=== PATIENT | male | born 1970 | race Caucasian/White ===

== ENCOUNTER 2018-03-16 | Emergency (ER) | payer SELFPAY | END 2018-03-16 22:53 | disposition home or self-care (01) | DX: S20.212A Contusion of left front wall of thorax, initial encounter (principal); W55.12XA Struck by horse, initial encounter; Y93.89 Activity, other specified; Y92.89 Other specified places as the place of occurrence of the external cause; Y99.8 Other external cause status ==

== ENCOUNTER 2019-12-01 13:44 | Inpatient (IN) | payer OTHER ==
[~2019-12-01] VITALS: Ht 175 cm; Wt 117.9 kg
[2019-12-01 14:02] VITALS: BP 168/90
[2019-12-01 14:17] LABS: BASO # 0.1 10*3/uL (0.0-0.1); BASO % 0.8 % (0.0-1.0); EOS % 0.7 % (1.0-4.0); HEMATOCRIT 48.9 % (42.0-52.0); LYMPH # 1.5 10*3/uL (1.3-4.4); MEAN CELL VOLUME 89.6 fl (80.0-94.0); MEAN CORPUSCULAR HGB 30.8 pg (27.0-31.0); MEAN CORPUSCULAR HGB CONC 34.4 g/dl (33.0-37.0); MONO # 0.6 10*3/uL (0.1-1.0); MONO % 9.5 % (3.0-9.0); NEUT # 3.9 10*3/uL (2.3-7.9); NEUT % 64.7 % (47.0-73.0); PLATELET COUNT AUTOMATED 227 10*3/uL (130-400); RED BLOOD COUNT 5.46 10*6/uL (4.50-5.90)
[2019-12-01 14:29] LABS: ACT PARTIAL THROMBO TIME 27.1 SECONDS (20.0-32.1)
[2019-12-01 14:36] LABS: ALBUMIN 3.8 gm/dl (3.1-4.5); ALKALINE PHOSPHATASE 109 U/L (45-117); BUN 15 mg/dl (7-24); CHLORIDE 101 mmol/L (98-107); CREATININE 1.02 mg/dL (0.70-1.30); POTASSIUM 3.9 mmol/L (3.5-5.1); SGOT/AST 47 IU/L (3-35); SGPT/ALT 98 U/L (12-78); SODIUM 132 mmol/L (136-145); TOTAL PROTEIN 7.8 gm/dL (6.4-8.2)
[2019-12-01 14:38] LABS: TROPONIN I < 0.015 ng/ml (<0.045)
--- NOTE | 2019-12-01 17:00 | NUR ---
PATIENT ASSISTED TO THE RESTROOM.
--- NOTE | 2019-12-01 17:03 | NUR ---
PT REPORTS THAT HE IS NOT HAVING ANY PAIN AT THIS TIME. PT VSS. NO SIGNS OF ACUTE DISTRESS NOTED AT THIS TIME.
--- NOTE | 2019-12-01 17:04 | NUR ---
PATIENT ASSISTED BACK TO BED. CALL LIGHT IN REACH. RECONNECTED TO MONITOR.
[2019-12-01 18:09] VITALS: BP 132/80
--- NOTE | 2019-12-01 18:35 | NUR ---
FLOOR IS HAVING US HOLD PT DOWN HERE UNTIL SHIFT CHANGE.
--- NOTE | 2019-12-01 19:03 | NUR ---
Transfer of care from Milagro samuel.
--- NOTE | 2019-12-01 19:12 | NUR ---
In to see pt at this time.Pt is alert and orientated x3.Pt has clear lung sounds at this time.Pt denies open wounds at this time.Pt has 20 gauge with good blood return in left ac at this time.
[2019-12-01 19:17] VITALS: BP 130/80
--- NOTE | 2019-12-01 19:40 | NUR ---
A 49, admitted to [facility], under the services of JULES Lambert DO with a diagnosis of NEAR SYNCOPE, R/O ACUTE ME. Chief complaint is CHEST PAIN. Patient arrived via wheel chair from ER. Monitor applied. Initial assessment completed. Vital signs taken and recorded. JULES LAMBERT DO notified of admission to the unit. Orders received. See assessment for past medical history, medications and allergies. Patient and/or family oriented to unit. [address] visitation policy reviewed. Clothing/patient valuable form completed. BRUCE SIDDIQUI
--- NOTE | 2019-12-01 20:01 | NUR ---
PT SITTING UP IN BED AT THIS TIME. NO S/S OF DISTRESS NOTED. DENIES CP OR SOB. PT REFUSING SKIN ASSESSMENT, DENIES WOUNDS.
[2019-12-02] VITALS: BP 106/68
[2019-12-02 06:40] LABS: BASO % 0.7 % (0.0-1.0); EOS # 0.1 10*3/uL (0.0-0.4); EOS % 1.8 % (1.0-4.0); HEMATOCRIT 48.6 % (42.0-52.0); LYMPH % 33.9 % (27.0-41.0); MEAN CELL VOLUME 90.8 fl (80.0-94.0); MEAN CORPUSCULAR HGB 31.4 pg (27.0-31.0); MEAN CORPUSCULAR HGB CONC 34.6 g/dl (33.0-37.0); MEAN PLATELET VOLUME 11.6 fl (9.6-12.3); MONO # 0.6 10*3/uL (0.1-1.0); MONO % 9.3 % (3.0-9.0); NEUT # 3.2 10*3/uL (2.3-7.9); NEUT % 53.8 % (47.0-73.0); PLATELET COUNT AUTOMATED 221 10*3/uL (130-400); RED BLOOD COUNT 5.35 10*6/uL (4.50-5.90); RED CELL DISTRI WIDTH 12.2 % (0-14.5)
[2019-12-02 07:14] LABS: INTERNATIONAL NORM RATIO 1.2 (2.0-3.5)
[2019-12-02 07:16] LABS: ALBUMIN 3.4 gm/dl (3.1-4.5); BUN 16 mg/dl (7-24); CHLORIDE 103 mmol/L (98-107); CHOLESTEROL 135 mg/dL (<200); CREATININE 0.75 mg/dL (0.70-1.30); POTASSIUM 3.9 mmol/L (3.5-5.1); SGOT/AST 48 IU/L (3-35); SGPT/ALT 97 U/L (12-78); SODIUM 136 mmol/L (136-145); TRIGLYCERIDES 85 mg/dl (<150); VLDL CHOLESTEROL 17 mg/dL (6-40)
[2019-12-02 07:23] LABS: ALKALINE PHOSPHATASE 80 U/L (45-117); HDL CHOLESTEROL 42 mg/dl (40-60); LDL CHOLESTEROL 76 mg/dL (9-159)
[2019-12-02 07:36] LABS: VITAMIN D, 25-HYDROXY 24.7 ng/mL (30-100)
[2019-12-02 08:00] VITALS: BP 124/58
--- NOTE | 2019-12-02 09:00 | NUR ---
case management visits with patient, he was in process of receiving an Echo, he stated he did not have any needs when he is discharged, case management will follow
[2019-12-02 12:00] VITALS: BP 106/54
[2019-12-02] MEDS ORDERED: GLUCOPHAGE XR750 MG PO (15:55)
[2019-12-02 16:00] VITALS: BP 106/68
[2019-12-02 20:00] VITALS: BP 115/67
[2019-12-03] VITALS (8 sets, daily range): BP systolic 106–150; BP diastolic 70–93
--- NOTE | 2019-12-03 03:10 | NUR ---
NOTIFIED DR. DEL CID OF PATIENT HEART RATE DIPPED DOWN TO 29BPM AND CAME RIGHT BACK UP TO 60'S. CHECKED ON PATIENT HE SLEEPING RESP EASY AND REG. WILL CONT TO MONITOR.
--- NOTE | 2019-12-03 03:11 | NUR ---
24 HR chart check completed.
--- NOTE | 2019-12-03 08:00 | NUR ---
PATIENT ALERT ORIENTED X 3. DENIES ANY CHEST PAIN OR SHORTNESS OF BREATH.
--- NOTE | 2019-12-03 09:00 | NUR ---
case management visits with patient, he states he will return home when discharged. he would like to have scripts filled in the hospital pharmacy when discharged, no other needs at this time, case management will follow
--- NOTE | 2019-12-03 11:01 | NUR ---
PATIENT TAKEN TO OR FOR PANFILO/CARDIOVERSION.
--- NOTE | 2019-12-03 15:07 | NUR ---
PATIENT HAS BEEN BACK FROM PROCEDURE. CARDIOVERSION NOT SUCCESSFULL STILL AFIB PER MONITOR RATE IN THE 70-80'S. NEW MEDICATIONS HAVE BEEN STARTED.
--- NOTE | 2019-12-03 23:15 | NUR ---
CALLED DR. DEL CID AND NOTIFIED HER OF HR INTO 30'S NO NEW ORDERS
[2019-12-04] VITALS: BP 93/57
--- NOTE | 2019-12-04 00:10 | NUR ---
CALLED DR. DEL CID AND NOTIFIED OF PT. HR 36BPM AND BACK UP TO 56BPM AND PATIENT WAS SLEEPING ON LEFT SIDE AT THE TIME. NO NEW ORDERS.
--- NOTE | 2019-12-04 04:00 | NUR ---
24 HR chart check completed.
[2019-12-04 08:00] VITALS: BP 120/66
[2019-12-04 12:00] VITALS: BP 131/55
[2019-12-04] MEDS ORDERED: GLUCOPHAGE XR750 MG PO (14:48)
[2019-12-04] MEDS ORDERED: LOSARTAN POTASS25 M1 PO (14:48)
[2019-12-04] MEDS ORDERED: VITAMIN D350 MC2 PO (14:48)
[2019-12-04] MEDS ORDERED: XARE20MG PO (14:48)
[2019-12-04] MEDS ORDERED: METOPROLOL SUCC50 M1 PO (14:48)
--- NOTE | 2019-12-04 14:56 | NUR ---
PATIENT DISCHARGED TO HOME.
== END 2019-12-04 16:37 | disposition home or self-care (01) | DRG 313 ==
LOC: ED 13:44 → 4NE 17:49 → EDHOLD 17:49 → 4NE 18:01
PROVIDERS: Emergency Medicine; Internal Medicine; ADMIT Internal Medicine; ATTEND Internal Medicine
DX: R07.9 Chest pain, unspecified (principal); E87.1 Hypo-osmolality and hyponatremia; I48.91 Unspecified atrial fibrillation; E11.65 Type 2 diabetes mellitus with hyperglycemia; I10 Essential (primary) hypertension; E66.9 Obesity, unspecified; R74.0 Nonspecific elevation of levels of transaminase and lactic acid dehydrogenase [LDH]; Z82.49 Family history of ischemic heart disease and other diseases of the circulatory system; Z86.718 Personal history of other venous thrombosis and embolism; Z79.899 Other long term (current) drug therapy

== ENCOUNTER → 2020-01-02 | Outpatient (CLI) | payer OTHER ==
[~2020-01-02] MED LIST: GLUCOPHAGE XR750 MG PO; LOSARTAN POTASS25 M1 PO; METOPROLOL SUCC50 M1 PO; VITAMIN D350 MC2 PO; XARE20MG PO
== END | disposition home or self-care (01) ==
LOC: RESCLI 00:23
PROVIDERS: ATTEND Internal Medicine
DX: E11.65 Type 2 diabetes mellitus with hyperglycemia (principal); I48.20 Chronic atrial fibrillation, unspecified; I10 Essential (primary) hypertension; R73.9 Hyperglycemia, unspecified; M10.071 Idiopathic gout, right ankle and foot; E55.9 Vitamin D deficiency, unspecified; E66.01 Morbid (severe) obesity due to excess calories

== ENCOUNTER → 2020-03-10 | Outpatient (CLI) | payer OTHER | END | disposition home or self-care (01) | LOC: RESCLI 00:32 | PROVIDERS: ATTEND Internal Medicine Nephrology | DX: E11.65 Type 2 diabetes mellitus with hyperglycemia (principal); I48.20 Chronic atrial fibrillation, unspecified; I10 Essential (primary) hypertension; E55.9 Vitamin D deficiency, unspecified; Z79.84 Long term (current) use of oral hypoglycemic drugs ==

== ENCOUNTER → 2020-10-14 | Outpatient (CLI) | payer OTHER | END | disposition home or self-care (01) | LOC: RESCLI 00:50 | PROVIDERS: ATTEND Internal Medicine | DX: R35.0 Frequency of micturition (principal); R20.8 Other disturbances of skin sensation; E11.65 Type 2 diabetes mellitus with hyperglycemia; E55.9 Vitamin D deficiency, unspecified; I48.20 Chronic atrial fibrillation, unspecified; I10 Essential (primary) hypertension; N39.0 Urinary tract infection, site not specified; I34.0 Nonrheumatic mitral (valve) insufficiency; Z79.899 Other long term (current) drug therapy; Z79.84 Long term (current) use of oral hypoglycemic drugs ==

== ENCOUNTER → 2020-10-15 | Outpatient (CLI) | payer OTHER ==
[2020-10-15 10:21] LABS: BILIRUBIN Negative (Negative); BLOOD Negative (Negative); CLARITY Clear (Clear); COLOR Yellow (Yellow); GLUCOSE 3+ (Negative); KETONE Negative (Negative); LEUKO ESTERASE Negative (Negative); NITRITE Negative (Negative); SPECIFIC GRAVITY >= 1.030 (1.001-1.030)
[2020-10-15 10:22] LABS: BASO # 0.1 10*3/uL (0.0-0.1); BASO % 0.7 % (0.0-1.0); EOS # 0.1 10*3/uL (0.0-0.4); EOS % 1.1 % (1.0-4.0); HEMATOCRIT 53.5 % (42.0-52.0); LYMPH # 1.3 10*3/uL (1.3-4.4); LYMPH % 16.1 % (27.0-41.0); MEAN CELL VOLUME 92.1 fl (80.0-94.0); MEAN CORPUSCULAR HGB CONC 33.6 g/dl (33.0-37.0); MEAN PLATELET VOLUME 11.9 fl (9.6-12.3); MONO # 0.9 10*3/uL (0.1-1.0); MONO % 10.8 % (3.0-9.0); NEUT # 5.8 10*3/uL (2.3-7.9); NEUT % 70.7 % (47.0-73.0); PLATELET COUNT AUTOMATED 250 10*3/uL (130-400); RED BLOOD COUNT 5.81 10*6/uL (4.50-5.90); RED CELL DISTRI WIDTH 12.2 % (0-14.5); WHITE BLOOD COUNT 8.2 10*3/uL (4.8-10.8)
[2020-10-15 10:41] LABS: ALBUMIN 3.9 gm/dl (3.1-4.5); ALKALINE PHOSPHATASE 152 U/L (45-117); BUN 24 mg/dl (7-24); CHLORIDE 107 mmol/L (98-107); CHOLESTEROL 147 mg/dL (<200); LDL CHOLESTEROL 77 mg/dL (9-159); POTASSIUM 4.3 mmol/L (3.5-5.1); SGOT/AST 32 IU/L (3-35); SGPT/ALT 78 U/L (12-78); SODIUM 137 mmol/L (136-145); TOTAL PROTEIN 8.3 gm/dL (6.4-8.2); TRIGLYCERIDES 115 mg/dl (<150)
[2020-10-15 10:59] LABS: BACTERIA TRACE
== END | disposition home or self-care (01) ==
LOC: LAB 01:07
PROVIDERS: ATTEND Social Worker Clinical
DX: I48.20 Chronic atrial fibrillation, unspecified (principal); I10 Essential (primary) hypertension; E55.9 Vitamin D deficiency, unspecified; N39.0 Urinary tract infection, site not specified; E11.65 Type 2 diabetes mellitus with hyperglycemia

== ENCOUNTER → 2020-10-28 | Outpatient (CLI) | payer OTHER | END | disposition home or self-care (01) | LOC: RESCLI 00:35 | PROVIDERS: ATTEND Internal Medicine | DX: E11.65 Type 2 diabetes mellitus with hyperglycemia (principal); G47.33 Obstructive sleep apnea (adult) (pediatric); Z79.84 Long term (current) use of oral hypoglycemic drugs; Z79.899 Other long term (current) drug therapy ==

== ENCOUNTER → 2021-09-22 | Outpatient (CLI) | payer OTHER ==
[2021-09-22 17:42] LABS: BASO # 0.1 10*3/uL (0.0-0.1); BASO % 0.7 % (0.0-1.0); EOS # 0.1 10*3/uL (0.0-0.4); EOS % 1.3 % (1.0-4.0); HEMATOCRIT 50.7 % (42.0-52.0); LYMPH # 1.9 10*3/uL (1.3-4.4); MEAN CELL VOLUME 91.2 fl (80.0-94.0); MEAN CORPUSCULAR HGB 31.5 pg (27.0-31.0); MEAN CORPUSCULAR HGB CONC 34.5 g/dl (33.0-37.0); MEAN PLATELET VOLUME 11.6 fl (9.6-12.3); MONO # 0.7 10*3/uL (0.1-1.0); MONO % 9.6 % (3.0-9.0); NEUT # 4.3 10*3/uL (2.3-7.9); PLATELET COUNT AUTOMATED 234 10*3/uL (130-400); RED BLOOD COUNT 5.56 10*6/uL (4.50-5.90); WHITE BLOOD COUNT 7.1 10*3/uL (4.8-10.8)
[2021-09-22 17:44] LABS: BILIRUBIN Negative (Negative); BLOOD Negative (Negative); CLARITY Clear (Clear); COLOR Yellow (Yellow); GLUCOSE 3+ (Negative); KETONE Negative (Negative); LEUKO ESTERASE Negative (Negative); NITRITE Negative (Negative); SPECIFIC GRAVITY >= 1.030 (1.001-1.030); UROBILINOGEN 0.2 E.U./dl (0.0-1.0)
[2021-09-22 17:57] LABS: ALKALINE PHOSPHATASE 104 U/L (45-117); BUN 13 mg/dl (7-24); CHLORIDE 105 mmol/L (98-107); POTASSIUM 4.1 mmol/L (3.5-5.1); SGOT/AST 56 IU/L (3-35); SGPT/ALT 123 U/L (12-78); SODIUM 137 mmol/L (136-145); TOTAL PROTEIN 7.7 gm/dL (6.4-8.2)
[2021-09-22 19:15] LABS: BACTERIA TRACE
== END | disposition home or self-care (01) ==
LOC: RESCLI 14:48
PROVIDERS: Internal Medicine; ATTEND Family Medicine
DX: E11.65 Type 2 diabetes mellitus with hyperglycemia (principal); I10 Essential (primary) hypertension; R30.0 Dysuria; I48.20 Chronic atrial fibrillation, unspecified; Z79.899 Other long term (current) drug therapy; Z79.01 Long term (current) use of anticoagulants

== ENCOUNTER 2022-11-18 10:23 | Emergency (ER) | payer OTHER ==
[~2022-11-18] VITALS: Ht 175.2 cm
[2022-11-18 11:12] LABS: BASO % 0.5 % (0.0-1.0); EOS % 0.4 % (1.0-4.0); HEMATOCRIT 50.3 % (42.0-52.0); LYMPH # 1.6 10*3/uL (1.3-4.4); LYMPH % 20.6 % (27.0-41.0); MEAN CELL VOLUME 87.6 fl (80.0-94.0); MEAN CORPUSCULAR HGB 30.8 pg (27.0-31.0); MEAN CORPUSCULAR HGB CONC 35.2 g/dl (33.0-37.0); MEAN PLATELET VOLUME 11.3 fl (9.6-12.3); MONO # 0.6 10*3/uL (0.1-1.0); MONO % 7.6 % (3.0-9.0); NEUT # 5.3 10*3/uL (2.3-7.9); NEUT % 70.5 % (47.0-73.0); PLATELET COUNT AUTOMATED 259 10*3/uL (130-400); RED BLOOD COUNT 5.74 10*6/uL (4.50-5.90); RED CELL DISTRI WIDTH 11.9 % (0-14.5); WHITE BLOOD COUNT 7.5 10*3/uL (4.8-10.8)
[2022-11-18 11:42] LABS: ALKALINE PHOSPHATASE 110 U/L (46-116); BUN 11 mg/dl (9-23); CHLORIDE 106 mmol/L (98-107); POTASSIUM 4.2 mmol/L (3.4-5.1); SGPT/ALT 23 U/L (10-49); TOTAL PROTEIN 7.6 gm/dL (6.0-8.0)
[2022-11-18 13:07] LABS: BILIRUBIN Negative (Negative); BLOOD Negative (Negative); CLARITY Clear (Clear); COLOR Yellow (Yellow); GLUCOSE 3+ (Negative); KETONE Trace (Negative); LEUKO ESTERASE Trace (Negative); NITRITE Negative (Negative); SPECIFIC GRAVITY >= 1.030 (1.001-1.030); UROBILINOGEN 0.2 E.U./dl (0.0-1.0)
[2022-11-18 13:17] LABS: RBC 0-2 rbc/hpf (0-2)
[2022-11-18 13:18] LABS: BACTERIA 2+
== END 2022-11-18 14:11 | disposition home or self-care (01) ==
LOC: ED 10:23
PROVIDERS: Nurse Practitioner Family
DX: B37.42 Candidal balanitis (principal); M25.561 Pain in right knee; I48.91 Unspecified atrial fibrillation; E11.9 Type 2 diabetes mellitus without complications; Z98.890 Other specified postprocedural states; Z79.899 Other long term (current) drug therapy

== ENCOUNTER 2023-11-01 09:39 | Emergency (ER) | payer OTHER ==
[~2023-11-01] VITALS: Ht 175.2 cm; Wt 108.9 kg
[2023-11-01 10:57] LABS: BASO # 0.1 10*3/uL (0.0-0.1); BASO % 0.8 % (0.0-1.0); EOS # 0.1 10*3/uL (0.0-0.4); EOS % 1.1 % (1.0-4.0); HEMATOCRIT 50.3 % (42.0-52.0); LYMPH # 1.5 10*3/uL (1.3-4.4); MEAN CELL VOLUME 90.1 fl (80.0-94.0); MEAN CORPUSCULAR HGB 31.2 pg (27.0-31.0); MEAN CORPUSCULAR HGB CONC 34.6 g/dl (33.0-37.0); MEAN PLATELET VOLUME 10.7 fl (9.6-12.3); MONO # 0.5 10*3/uL (0.1-1.0); MONO % 7.6 % (3.0-9.0); NEUT # 4.3 10*3/uL (2.3-7.9); NEUT % 66.2 % (47.0-73.0); PLATELET COUNT AUTOMATED 260 10*3/uL (130-400); RED BLOOD COUNT 5.58 10*6/uL (4.50-5.90); RED CELL DISTRI WIDTH 11.9 % (0-14.5); WHITE BLOOD COUNT 6.4 10*3/uL (4.8-10.8)
[2023-11-01 11:13] LABS: ALKALINE PHOSPHATASE 118 U/L (46-116); BUN 13 mg/dl (9-23); CHLORIDE 104 mmol/L (98-107); LIPASE 38 U/L (12-53); POTASSIUM 4.3 mmol/L (3.4-5.1); SGPT/ALT 40 U/L (5-49); TOTAL PROTEIN 7.4 gm/dL (6.0-8.0)
[2023-11-01 11:26] LABS: BILIRUBIN Negative (Negative); BLOOD Negative (Negative); CLARITY Clear (Clear); COLOR Yellow (Yellow); GLUCOSE 3+ (Negative); KETONE Negative (Negative); LEUKO ESTERASE Negative (Negative); NITRITE Negative (Negative); PH 6.5 (4.5-8.0); SPECIFIC GRAVITY >= 1.030 (1.001-1.030)
[2023-11-01 11:35] LABS: WBC TNTC wbc/hpf (0-5)
[2023-11-01] MEDS ORDERED: Lidocaine Hydrochloride 15 ML UDC PO ONE (11:50)
[2023-11-01] MEDS ORDERED: MG-AL HYDROXIDE/SIMETICONE 30 ML UDC PO ONE (11:50)
[2023-11-01] MEDS ORDERED: METFORMIN HYDR500 MG PO (12:00)
[2023-11-01] MEDS ORDERED: IOHEXOL 350 MG/ML 100 ML VIAL IV ONE (12:05)
[2023-11-01] MEDS ORDERED: SODIUM CHLORIDE 0.9% 100 ML BAG IV ONE (12:05)
[2023-11-01] MEDS ORDERED: OMEPRAZOLE40 MG PO (13:48)
== END 2023-11-01 14:06 | disposition home or self-care (01) ==
LOC: ED 09:39
PROVIDERS: Emergency Medicine
DX: R10.11 Right upper quadrant pain (principal); R07.89 Other chest pain; M54.6 Pain in thoracic spine; Z79.899 Other long term (current) drug therapy; Z79.84 Long term (current) use of oral hypoglycemic drugs

== ENCOUNTER 2023-11-13 06:18 | Emergency (ER) | payer OTHER ==
[~2023-11-13] VITALS: Ht 177.8 cm; Wt 122.5 kg
[~2023-11-13 06:18] MED LIST changes: +METFORMIN HYDR500 MG PO; +OMEPRAZOLE40 MG PO
[2023-11-13 06:58] LABS: BASO % 0.6 % (0.0-1.0); EOS # 0.1 10*3/uL (0.0-0.4); EOS % 1.3 % (1.0-4.0); LYMPH # 1.7 10*3/uL (1.3-4.4); LYMPH % 24.3 % (27.0-41.0); MEAN CELL VOLUME 88.5 fl (80.0-94.0); MEAN PLATELET VOLUME 10.8 fl (9.6-12.3); MONO # 0.7 10*3/uL (0.1-1.0); MONO % 9.3 % (3.0-9.0); NEUT # 4.6 10*3/uL (2.3-7.9); NEUT % 64.2 % (47.0-73.0); PLATELET COUNT AUTOMATED 231 10*3/uL (130-400); RED BLOOD COUNT 4.97 10*6/uL (4.50-5.90); RED CELL DISTRI WIDTH 11.8 % (0-14.5); WHITE BLOOD COUNT 7.2 10*3/uL (4.8-10.8)
[2023-11-13 07:20] LABS: ALKALINE PHOSPHATASE 122 U/L (46-116); BUN 12 mg/dl (9-23); CHLORIDE 103 mmol/L (98-107); LIPASE 34 U/L (12-53); POTASSIUM 3.6 mmol/L (3.4-5.1); SGPT/ALT 22 U/L (5-49); TOTAL PROTEIN 6.6 gm/dL (6.0-8.0)
[2023-11-13] MEDS ORDERED: LIDOCAINE 4% PATCH T ONE (07:30)
[2023-11-13] MEDS ORDERED: ACETAMINOPHEN 325 MG TAB PO ONE (07:30)
[2023-11-13 07:36] LABS: BILIRUBIN Negative (Negative); BLOOD Negative (Negative); CLARITY Clear (Clear); COLOR Yellow (Yellow); GLUCOSE 2+ (Negative); KETONE Negative (Negative); LEUKO ESTERASE 2+ (Negative); NITRITE Negative (Negative); SPECIFIC GRAVITY 1.025 (1.001-1.030)
[2023-11-13 07:40] LABS: PH 8.5 (4.5-8.0)
[2023-11-13 08:03] LABS: BACTERIA 3+; WBC 31-40 wbc/hpf (0-5)
[2023-11-13] MEDS ORDERED: ASPERCREME LID1 EACH T (08:26)
[2023-11-13] MEDS ORDERED: TYLENOL EXTRA500 MG PO (08:26)
== END 2023-11-13 08:42 | disposition home or self-care (01) ==
LOC: ED 06:18
PROVIDERS: Internal Medicine
DX: K59.00 Constipation, unspecified (principal); K57.30 Diverticulosis of large intestine without perforation or abscess without bleeding; E11.65 Type 2 diabetes mellitus with hyperglycemia; Z98.890 Other specified postprocedural states; I48.91 Unspecified atrial fibrillation

== ENCOUNTER 2023-12-03 13:29 | Emergency (ER) | payer OTHER ==
[~2023-12-03] VITALS: Wt 109.3 kg
[~2023-12-03 13:29] MED LIST changes: +ASPERCREME LID1 EACH T; +TYLENOL EXTRA500 MG PO
[2023-12-03 14:36] LABS: BASO # 0.1 10*3/uL (0.0-0.1); BASO % 0.7 % (0.0-1.0); EOS # 0.1 10*3/uL (0.0-0.4); EOS % 1.3 % (1.0-4.0); HEMATOCRIT 46.8 % (42.0-52.0); LYMPH % 28.6 % (27.0-41.0); MEAN CELL VOLUME 87.5 fl (80.0-94.0); MEAN CORPUSCULAR HGB CONC 35.5 g/dl (33.0-37.0); MEAN PLATELET VOLUME 10.8 fl (9.6-12.3); MONO # 0.6 10*3/uL (0.1-1.0); MONO % 8.8 % (3.0-9.0); NEUT # 4.3 10*3/uL (2.3-7.9); NEUT % 60.5 % (47.0-73.0); PLATELET COUNT AUTOMATED 267 10*3/uL (130-400); RED BLOOD COUNT 5.35 10*6/uL (4.50-5.90); RED CELL DISTRI WIDTH 11.9 % (0-14.5); WHITE BLOOD COUNT 7.1 10*3/uL (4.8-10.8)
[2023-12-03 15:08] LABS: BUN 10 mg/dl (9-23); CHLORIDE 101 mmol/L (98-107); POTASSIUM 4.1 mmol/L (3.4-5.1)
[2023-12-03] MEDS ORDERED: MAGNESIUM CITRATE 296 ML BOT PO ONE (15:40)
[2023-12-03] MEDS ORDERED: MIRALAX POWDER17 G1 PO (15:42)
== END 2023-12-03 16:03 | disposition home or self-care (01) ==
LOC: ED 13:29
PROVIDERS: Internal Medicine
DX: K59.00 Constipation, unspecified (principal); I48.91 Unspecified atrial fibrillation; E11.9 Type 2 diabetes mellitus without complications; Z98.890 Other specified postprocedural states

== ENCOUNTER 2023-12-07 00:12 | Emergency (ER) | payer OTHER ==
[~2023-12-07] VITALS: Ht 175.2 cm; Wt 109.3 kg
[~2023-12-07 00:12] MED LIST changes: +MIRALAX POWDER17 G1 PO
[2023-12-07] MEDS ORDERED: ACETAMINOPHEN 325 MG TAB PO ONE (00:30)
[2023-12-07 00:40] LABS: BASO % 0.6 % (0.0-1.0); EOS # 0.1 10*3/uL (0.0-0.4); EOS % 1.6 % (1.0-4.0); HEMATOCRIT 46.6 % (42.0-52.0); LYMPH # 2.1 10*3/uL (1.3-4.4); LYMPH % 30.2 % (27.0-41.0); MEAN CELL VOLUME 87.9 fl (80.0-94.0); MEAN CORPUSCULAR HGB 30.8 pg (27.0-31.0); MEAN PLATELET VOLUME 11.2 fl (9.6-12.3); MONO # 0.6 10*3/uL (0.1-1.0); MONO % 9.2 % (3.0-9.0); NEUT % 58.1 % (47.0-73.0); PLATELET COUNT AUTOMATED 252 10*3/uL (130-400); RED CELL DISTRI WIDTH 11.8 % (0-14.5); WHITE BLOOD COUNT 6.9 10*3/uL (4.8-10.8)
[2023-12-07 01:00] LABS: BUN 15 mg/dl (9-23); CHLORIDE 101 mmol/L (98-107); POTASSIUM 4.3 mmol/L (3.4-5.1)
[2023-12-07] MEDS ORDERED: MAGNESIUM CITRATE 296 ML BOT PO ONE (01:20)
== END 2023-12-07 01:28 | disposition home or self-care (01) ==
LOC: ED 00:12
PROVIDERS: Internal Medicine
DX: K59.00 Constipation, unspecified (principal); E11.9 Type 2 diabetes mellitus without complications; I48.91 Unspecified atrial fibrillation; Z98.890 Other specified postprocedural states

== ENCOUNTER 2023-12-30 19:48 | Emergency (ER) | payer OTHER ==
[~2023-12-30] VITALS: Ht 175.2 cm; Wt 104.8 kg
[2023-12-30] MEDS ORDERED: Ketorolac Tromethamine 30 MG/ML VIAL IM ONE (20:45)
[2023-12-30] MEDS ORDERED: Acetaminophen/Hydrocodone 5 MG/325 MG TABLET PO ONE (20:45)
[2023-12-30] MEDS ORDERED: KETOROLAC10 MG PO (20:53)
== END 2023-12-30 21:41 | disposition home or self-care (01) ==
LOC: ED 19:48
DX: S39.012D Strain of muscle, fascia and tendon of lower back, subsequent encounter (principal); M54.6 Pain in thoracic spine; R10.9 Unspecified abdominal pain; E11.9 Type 2 diabetes mellitus without complications; Z79.899 Other long term (current) drug therapy; Z79.84 Long term (current) use of oral hypoglycemic drugs; X50.9XXD Other and unspecified overexertion or strenuous movements or postures, subsequent encounter

== ENCOUNTER 2024-01-01 06:29 | Emergency (ER) | payer OTHER ==
[~2024-01-01] VITALS: Ht 177.8 cm; Wt 113.4 kg
[~2024-01-01 06:29] MED LIST changes: +KETOROLAC10 MG PO
[2024-01-01 06:56] LABS: BASO % 0.4 % (0.0-1.0); EOS # 0.1 10*3/uL (0.0-0.4); EOS % 1.1 % (1.0-4.0); HEMATOCRIT 49.9 % (42.0-52.0); LYMPH # 1.8 10*3/uL (1.3-4.4); LYMPH % 23.2 % (27.0-41.0); MEAN CELL VOLUME 87.4 fl (80.0-94.0); MEAN CORPUSCULAR HGB 30.5 pg (27.0-31.0); MEAN CORPUSCULAR HGB CONC 34.9 g/dl (33.0-37.0); MEAN PLATELET VOLUME 10.9 fl (9.6-12.3); MONO # 0.7 10*3/uL (0.1-1.0); MONO % 8.5 % (3.0-9.0); NEUT # 5.3 10*3/uL (2.3-7.9); NEUT % 66.5 % (47.0-73.0); PLATELET COUNT AUTOMATED 260 10*3/uL (130-400); RED BLOOD COUNT 5.71 10*6/uL (4.50-5.90); RED CELL DISTRI WIDTH 11.7 % (0-14.5); WHITE BLOOD COUNT 7.9 10*3/uL (4.8-10.8)
[2024-01-01 07:17] LABS: ALKALINE PHOSPHATASE 117 U/L (46-116); BUN 19 mg/dl (9-23); CHLORIDE 101 mmol/L (98-107); POTASSIUM 4.3 mmol/L (3.4-5.1); SGPT/ALT 28 U/L (5-49); TOTAL PROTEIN 7.3 gm/dL (6.0-8.0)
== END 2024-01-01 09:49 | disposition home or self-care (01) ==
LOC: ED 06:29
PROVIDERS: Internal Medicine
DX: M94.0 Chondrocostal junction syndrome [Tietze] (principal); R10.10 Upper abdominal pain, unspecified; R11.2 Nausea with vomiting, unspecified; R61 Generalized hyperhidrosis; E11.9 Type 2 diabetes mellitus without complications; I48.91 Unspecified atrial fibrillation; Z98.890 Other specified postprocedural states

== ENCOUNTER 2024-02-02 07:26 | Emergency (ER) | payer OTHER ==
[~2024-02-02] VITALS: Ht 175.2 cm; Wt 106.1 kg
[2024-02-02] MEDS ORDERED: SODIUM CHLORIDE 0.9% 1,000 ML IV ONE (07:55)
[2024-02-02] MEDS ORDERED: Ondansetron Hydrochloride 4 MG/2 ML VIAL IV ONE (07:55)
[2024-02-02] MEDS ORDERED: Ketorolac Tromethamine 15 MG/ML VIAL IV ONE (07:55)
[2024-02-02] MEDS ORDERED: MORPHINE Sulfate 2 MG/ML SYR IV ONE (07:55)
[2024-02-02] MEDS ORDERED: IOHEXOL 300 MG/ML 100 ML VIAL IV ONE (08:00)
[2024-02-02 08:09] LABS: BASO % 0.6 % (0.0-1.0); EOS # 0.1 10*3/uL (0.0-0.4); EOS % 1.2 % (1.0-4.0); HEMATOCRIT 49.8 % (42.0-52.0); MEAN CELL VOLUME 87.8 fl (80.0-94.0); MEAN CORPUSCULAR HGB 30.5 pg (27.0-31.0); MEAN CORPUSCULAR HGB CONC 34.7 g/dl (33.0-37.0); MEAN PLATELET VOLUME 10.7 fl (9.6-12.3); MONO # 0.6 10*3/uL (0.1-1.0); MONO % 9.3 % (3.0-9.0); NEUT # 3.9 10*3/uL (2.3-7.9); NEUT % 57.8 % (47.0-73.0); PLATELET COUNT AUTOMATED 256 10*3/uL (130-400); RED BLOOD COUNT 5.67 10*6/uL (4.50-5.90); RED CELL DISTRI WIDTH 11.9 % (0-14.5); WHITE BLOOD COUNT 6.8 10*3/uL (4.8-10.8)
[2024-02-02 08:25] LABS: BUN 14 mg/dl (9-23); CHLORIDE 104 mmol/L (98-107); LIPASE 37 U/L (12-53); POTASSIUM 4.1 mmol/L (3.4-5.1)
[2024-02-02 09:12] LABS: BILIRUBIN Negative (Negative); BLOOD Negative (Negative); CLARITY Clear (Clear); COLOR Dark Yellow (Yellow); GLUCOSE 1+ (Negative); KETONE Trace (Negative); LEUKO ESTERASE Negative (Negative); NITRITE Negative (Negative); PH 6.5 (4.5-8.0); SPECIFIC GRAVITY >= 1.030 (1.001-1.030)
[2024-02-02 10:02] LABS: MUCOUS 1+
[2024-02-02 10:03] LABS: BACTERIA 1+; WBC 0-2 wbc/hpf (0-5)
[2024-02-02 10:04] LABS: RBC 0-2 rbc/hpf (0-2)
[2024-02-02] MEDS ORDERED: Ondansetron4 MG PO (11:09)
[2024-02-02] MEDS ORDERED: PEPCID20 MG PO (11:09)
== END 2024-02-02 11:16 | disposition home or self-care (01) ==
LOC: ED 07:26
PROVIDERS: Emergency Medicine
DX: K29.70 Gastritis, unspecified, without bleeding (principal); R11.2 Nausea with vomiting, unspecified; E11.9 Type 2 diabetes mellitus without complications; I10 Essential (primary) hypertension; E78.5 Hyperlipidemia, unspecified; Z79.84 Long term (current) use of oral hypoglycemic drugs; Z85.47 Personal history of malignant neoplasm of testis

== ENCOUNTER 2024-02-06 06:59 | Emergency (ER) | payer OTHER ==
[~2024-02-06] VITALS: Ht 175.2 cm; Wt 106.1 kg
[~2024-02-06 06:59] MED LIST changes: +Ondansetron4 MG PO; +PEPCID20 MG PO
[2024-02-06] MEDS ORDERED: SODIUM CHLORIDE 0.9% 500 ML IV ONE (07:30)
[2024-02-06] MEDS ORDERED: Metoclopramide Hydrochloride 10 MG/2 ML VIAL IV ONE (07:30)
[2024-02-06] MEDS ORDERED: FAMOTIDINE 50 ML IV ONE (07:30)
[2024-02-06] MEDS ORDERED: diphenhydrAMINE hydrochloride 50 MG/ML VIAL IV ONE (07:30)
[2024-02-06] MEDS ORDERED: MORPHINE Sulfate 2 MG/ML SYR IV ONE (07:30)
[2024-02-06] MEDS ORDERED: SODIUM CHLORIDE 0.9% 100 ML BAG IV ONE (07:45)
[2024-02-06] MEDS ORDERED: IOHEXOL 350 MG/ML 100 ML VIAL IV ONE ×2 (07:45→08:11)
[2024-02-06 07:57] LABS: BASO % 0.5 % (0.0-1.0); EOS # 0.1 10*3/uL (0.0-0.4); EOS % 1.4 % (1.0-4.0); HEMATOCRIT 46.9 % (42.0-52.0); MEAN CELL VOLUME 87.7 fl (80.0-94.0); MEAN CORPUSCULAR HGB 30.7 pg (27.0-31.0); MEAN PLATELET VOLUME 10.8 fl (9.6-12.3); MONO # 0.6 10*3/uL (0.1-1.0); MONO % 7.8 % (3.0-9.0); NEUT # 5.1 10*3/uL (2.3-7.9); NEUT % 65.9 % (47.0-73.0); PLATELET COUNT AUTOMATED 250 10*3/uL (130-400); RED BLOOD COUNT 5.35 10*6/uL (4.50-5.90); RED CELL DISTRI WIDTH 11.9 % (0-14.5); WHITE BLOOD COUNT 7.7 10*3/uL (4.8-10.8)
[2024-02-06 08:07] LABS: ACT PARTIAL THROMBO TIME 25.9 SECONDS (20.0-32.1)
[2024-02-06] MEDS ORDERED: SODIUM CHLORIDE 0.9% 100 ML IV ONE (08:11)
[2024-02-06 08:19] LABS: CPK 47 U/L (34-171)
[2024-02-06 08:19] LABS: ALKALINE PHOSPHATASE 101 U/L (46-116); BUN 14 mg/dl (9-23); CHLORIDE 104 mmol/L (98-107); LDH 161 U/L (120-246); LIPASE 34 U/L (12-53); SGPT/ALT 21 U/L (5-49); TOTAL PROTEIN 6.7 gm/dL (6.0-8.0)
[2024-02-06 09:20] LABS: ETHYL ALCOHOL < 3.0 mg/dl (<3)
[2024-02-06 10:05] LABS: BILIRUBIN Negative (Negative); BLOOD Negative (Negative); CLARITY Clear (Clear); COLOR Yellow (Yellow); GLUCOSE 2+ (Negative); KETONE Negative (Negative); LEUKO ESTERASE Negative (Negative); NITRITE Negative (Negative); SPECIFIC GRAVITY >= 1.030 (1.001-1.030); UROBILINOGEN 0.2 E.U./dl (0.0-1.0)
[2024-02-06 10:12] LABS: URINE AMPHETAMINES Negative (1000ng/ml); URINE BARBITURATES Negative (200ng/ml); URINE BENZODIAZEPINES Negative (200ng/ml); URINE CANNABINOIDS (THC) Negative (50ng/ml); URINE COCAINE Negative (300ng/ml); URINE METHADONE Negative (300ng/ml); URINE OPIATES Positive (300ng/ml); URINE PHENCYCLIDINE Negative (25ng/ml)
[2024-02-06 10:20] LABS: EPITHELIAL CELLS 0-2
== END 2024-02-06 11:08 | disposition home or self-care (01) ==
LOC: ED 06:59
PROVIDERS: Emergency Medicine
DX: R07.89 Other chest pain (principal); Z20.822 Contact with and (suspected) exposure to COVID-19; R10.9 Unspecified abdominal pain; M54.50 Low back pain, unspecified; E11.9 Type 2 diabetes mellitus without complications; I48.91 Unspecified atrial fibrillation; Z79.899 Other long term (current) drug therapy; Z98.890 Other specified postprocedural states

== ENCOUNTER 2024-03-15 09:21 | Emergency (ER) | payer OTHER ==
[~2024-03-15] VITALS: Ht 175.2 cm; Wt 99.8 kg
[2024-03-15] MEDS ORDERED: SODIUM CHLORIDE 0.9% 1,000 ML IV ONE (09:50)
[2024-03-15] MEDS ORDERED: Metoprolol Tartrate 5 MG/5 ML VIAL IV ONE (10:35)
[2024-03-15 10:39] LABS: BASO # 0.1 10*3/uL (0.0-0.1); BASO % 0.7 % (0.0-1.0); EOS # 0.1 10*3/uL (0.0-0.4); HEMATOCRIT 49.4 % (42.0-52.0); MEAN CELL VOLUME 85.9 fl (80.0-94.0); MEAN CORPUSCULAR HGB 30.3 pg (27.0-31.0); MEAN CORPUSCULAR HGB CONC 35.2 g/dl (33.0-37.0); MEAN PLATELET VOLUME 11.2 fl (9.6-12.3); MONO # 0.7 10*3/uL (0.1-1.0); MONO % 8.8 % (3.0-9.0); NEUT # 5.4 10*3/uL (2.3-7.9); NEUT % 65.5 % (47.0-73.0); PLATELET COUNT AUTOMATED 246 10*3/uL (130-400); RED BLOOD COUNT 5.75 10*6/uL (4.50-5.90); RED CELL DISTRI WIDTH 12.3 % (0-14.5); WHITE BLOOD COUNT 8.2 10*3/uL (4.8-10.8)
[2024-03-15 10:49] LABS: VENOUS BLOOD GAS O2 SAT 86.8 % (60.0-85.0)
[2024-03-15 11:53] LABS: BUN 17 mg/dl (9-23); CHLORIDE 99 mmol/L (98-107); LIPASE 35 U/L (12-53); POTASSIUM 4.2 mmol/L (3.4-5.1)
[2024-03-15] MEDS ORDERED: INSULIN REGULAR, HUMAN 1 UNIT/0.01 ML IV ONE (12:10)
[2024-03-15] MEDS ORDERED: MAGNESIUM CITRATE 296 ML BOT PO ONE (12:10)
[2024-03-15] MEDS ORDERED: FAMOTIDINE 50 ML IV ONE (12:15)
== END 2024-03-15 14:00 | disposition home or self-care (01) ==
LOC: ED 09:21
PROVIDERS: Emergency Medicine
DX: R10.13 Epigastric pain (principal); E11.65 Type 2 diabetes mellitus with hyperglycemia; Z86.718 Personal history of other venous thrombosis and embolism; I10 Essential (primary) hypertension; E78.5 Hyperlipidemia, unspecified; I48.91 Unspecified atrial fibrillation; Z98.890 Other specified postprocedural states

== ENCOUNTER 2024-04-04 06:53 | Inpatient (IN) | payer SELFPAY ==
[~2024-04-04] VITALS: Ht 175.2 cm; Wt 100.5 kg
[2024-04-04 06:59] VITALS: BP 148/90
[2024-04-04] MEDS ORDERED: SODIUM CHLORIDE 0.9% 1,000 ML IV ONE (07:15)
[2024-04-04] MEDS ORDERED: MORPHINE Sulfate 2 MG/ML SYR IV ONE (07:15)
[2024-04-04] MEDS ORDERED: Ondansetron Hydrochloride 4 MG/2 ML VIAL IV ONE (07:15)
[2024-04-04] MEDS ORDERED: FAMOTIDINE 50 ML IV ONE (07:25)
[2024-04-04 07:28] LABS: BASO % 0.4 % (0.0-1.0); EOS # 0.1 10*3/uL (0.0-0.4); EOS % 0.7 % (1.0-4.0); HEMATOCRIT 48.1 % (42.0-52.0); MEAN CELL VOLUME 86.5 fl (80.0-94.0); MEAN CORPUSCULAR HGB 30.6 pg (27.0-31.0); MEAN CORPUSCULAR HGB CONC 35.3 g/dl (33.0-37.0); MEAN PLATELET VOLUME 10.6 fl (9.6-12.3); MONO # 0.7 10*3/uL (0.1-1.0); MONO % 9.7 % (3.0-9.0); NEUT # 3.9 10*3/uL (2.3-7.9); NEUT % 57.8 % (47.0-73.0); PLATELET COUNT AUTOMATED 242 10*3/uL (130-400); RED BLOOD COUNT 5.56 10*6/uL (4.50-5.90); RED CELL DISTRI WIDTH 11.9 % (0-14.5); WHITE BLOOD COUNT 6.8 10*3/uL (4.8-10.8)
[2024-04-04 07:50] LABS: BUN 12 mg/dl (9-23); CHLORIDE 102 mmol/L (98-107); LIPASE 38 U/L (12-53); POTASSIUM 4.1 mmol/L (3.4-5.1)
[2024-04-04] MEDS ORDERED: TRAMADOL HCL50 MG PO (08:14)
[2024-04-04] MEDS ORDERED: Magnesium Hydroxide 30 ML UDC PO PRN (09:00)
[2024-04-04] MEDS ORDERED: BISACODYL 10 MG SUPP R PRN (09:00)
[2024-04-04] MEDS ORDERED: Ondansetron Hydrochloride 4 MG/2 ML VIAL IV PRN (09:00)
[2024-04-04] MEDS ORDERED: BISACODYL 5 MG TAB PO PRN (09:00)
[2024-04-04] MEDS ORDERED: TOPROL XL25 MG PO (09:40)
[2024-04-04] MEDS ORDERED: JANUVIA100 MG PO (09:40)
[2024-04-04 12:37] VITALS: BP 133/82
[2024-04-04] MEDS ORDERED: ACETAMINOPHEN 325 MG TAB PO PRN (13:05)
[2024-04-04] MEDS ORDERED: BARIUM SULFATE 2% 450 ML BOT PO SCH (14:35)
[2024-04-04] MEDS ORDERED: Perflutren Protein Type A Mi 2 ML VIAL IV ONE (14:43)
[2024-04-04] MEDS ORDERED: DEXTROSE 10 % IN WATER 250 ML IV PRN (15:15)
[2024-04-04] MEDS ORDERED: IOHEXOL 300 MG/ML 100 ML VIAL IV ONE (16:00)
[2024-04-04] MEDS ORDERED: INSULIN LISPRO 1 UNIT/0.01 ML SQ SCH (16:30)
[2024-04-04 17:15] VITALS: BP 145/109
[2024-04-04 17:46] VITALS: BP 145/100
[2024-04-04] MEDS ORDERED: RIVAROXABAN 20 MG TAB PO SCH (18:00)
[2024-04-04 20:00] VITALS: BP 125/88
[2024-04-05] VITALS: BP 105/78
[2024-04-05 05:33] LABS: ALKALINE PHOSPHATASE 71 U/L (46-116); BUN 10 mg/dl (9-23); CHLORIDE 101 mmol/L (98-107); CHOLESTEROL 118 mg/dL (<200); FREE T4 1.57 ng/dl (0.89-1.76); LDL CHOLESTEROL 64 mg/dL (9-159); POTASSIUM 3.6 mmol/L (3.4-5.1); SGPT/ALT 23 U/L (5-49); TOTAL PROTEIN 6.3 gm/dL (6.0-8.0); TRIGLYCERIDES 76 mg/dl (<150)
[2024-04-05] MEDS ORDERED: OMEPRAZOLE 20 MG CAP PO SCH (06:00)
[2024-04-05 06:13] LABS: BASO % 0.5 % (0.0-1.0); EOS # 0.1 10*3/uL (0.0-0.4); EOS % 1.2 % (1.0-4.0); HEMATOCRIT 46.8 % (42.0-52.0); MEAN CELL VOLUME 86.7 fl (80.0-94.0); MEAN CORPUSCULAR HGB 30.4 pg (27.0-31.0); MEAN PLATELET VOLUME 11.3 fl (9.6-12.3); MONO # 0.7 10*3/uL (0.1-1.0); NEUT # 4.4 10*3/uL (2.3-7.9); NEUT % 58.8 % (47.0-73.0); PLATELET COUNT AUTOMATED 218 10*3/uL (130-400); WHITE BLOOD COUNT 7.5 10*3/uL (4.8-10.8)
[2024-04-05 06:39] LABS: ACT PARTIAL THROMBO TIME 34.5 SECONDS (20.0-32.1)
[2024-04-05 08:00] VITALS: BP 117/83
[2024-04-05 12:00] VITALS: BP 127/90
[2024-04-05] MEDS ORDERED: Metoprolol Tartrate 25 MG TAB PO SCH (13:30)
[2024-04-05 14:01] LABS: VITAMIN D, 25-HYDROXY 29.2 ng/mL (30-100)
[2024-04-05 16:00] VITALS: BP 91/59
[2024-04-05 20:00] VITALS: BP 108/79
[2024-04-06] VITALS: BP 114/87
[2024-04-06] MEDS ORDERED: Melatonin 5 MG TABLET PO PRN (00:10)
[2024-04-06] MEDS ORDERED: MORPHINE Sulfate 2 MG/ML SYR IV PRN (00:10)
[2024-04-06 07:31] LABS: BASO % 0.6 % (0.0-1.0); EOS # 0.1 10*3/uL (0.0-0.4); EOS % 1.5 % (1.0-4.0); HEMATOCRIT 46.2 % (42.0-52.0); MEAN CELL VOLUME 87.5 fl (80.0-94.0); MEAN CORPUSCULAR HGB 30.7 pg (27.0-31.0); MEAN CORPUSCULAR HGB CONC 35.1 g/dl (33.0-37.0); MEAN PLATELET VOLUME 10.8 fl (9.6-12.3); MONO # 0.7 10*3/uL (0.1-1.0); MONO % 10.8 % (3.0-9.0); NEUT # 3.2 10*3/uL (2.3-7.9); NEUT % 49.2 % (47.0-73.0); PLATELET COUNT AUTOMATED 224 10*3/uL (130-400); RED BLOOD COUNT 5.28 10*6/uL (4.50-5.90); WHITE BLOOD COUNT 6.6 10*3/uL (4.8-10.8)
[2024-04-06 07:49] LABS: BUN 12 mg/dl (9-23); CHLORIDE 101 mmol/L (98-107); POTASSIUM 4.1 mmol/L (3.4-5.1)
[2024-04-06 08:00] VITALS: BP 132/93
[2024-04-06] MEDS ORDERED: LACTULOSE 20 GM/30 ML UDC PO ONE (10:25)
[2024-04-06 12:00] VITALS: BP 134/82
[2024-04-06] MEDS ORDERED: OMEPRAZOLE MAGN20 MG PO (13:02)
== END 2024-04-06 14:33 | disposition home or self-care (01) | DRG 310 ==
LOC: ED 06:53 → EDHOLD 08:32 → 4E 14:43
PROVIDERS: Emergency Medicine; ADMIT Internal Medicine; ATTEND Internal Medicine
DX: I48.91 Unspecified atrial fibrillation (principal); R10.9 Unspecified abdominal pain; E11.65 Type 2 diabetes mellitus with hyperglycemia; E66.9 Obesity, unspecified; K59.00 Constipation, unspecified; I10 Essential (primary) hypertension; K57.30 Diverticulosis of large intestine without perforation or abscess without bleeding; I47.20 Ventricular tachycardia, unspecified; Z79.899 Other long term (current) drug therapy; Z85.47 Personal history of malignant neoplasm of testis; Z86.718 Personal history of other venous thrombosis and embolism; Z68.32 Body mass index [BMI] 32.0-32.9, adult

== ENCOUNTER 2024-05-04 19:34 | Emergency (ER) | payer SELFPAY ==
[~2024-05-04] VITALS: Ht 177.8 cm; Wt 95.7 kg
[~2024-05-04 19:34] MED LIST changes: +JANUVIA100 MG PO; +OMEPRAZOLE MAGN20 MG PO; +TOPROL XL25 MG PO; +TRAMADOL HCL50 MG PO
[2024-05-04 20:14] LABS: BASO # 0.1 10*3/uL (0.0-0.1); BASO % 0.7 % (0.0-1.0); EOS # 0.1 10*3/uL (0.0-0.4); HEMATOCRIT 47.8 % (42.0-52.0); MEAN CELL VOLUME 88.5 fl (80.0-94.0); MEAN CORPUSCULAR HGB 30.2 pg (27.0-31.0); MEAN CORPUSCULAR HGB CONC 34.1 g/dl (33.0-37.0); MEAN PLATELET VOLUME 10.6 fl (9.6-12.3); MONO # 0.6 10*3/uL (0.1-1.0); NEUT # 4.4 10*3/uL (2.3-7.9); NEUT % 63.5 % (47.0-73.0); PLATELET COUNT AUTOMATED 267 10*3/uL (130-400); RED CELL DISTRI WIDTH 12.3 % (0-14.5)
[2024-05-04 20:29] LABS: ACT PARTIAL THROMBO TIME 25.3 SECONDS (20.0-32.1)
[2024-05-04 20:35] LABS: ALKALINE PHOSPHATASE 85 U/L (46-116); BUN 15 mg/dl (9-23); CHLORIDE 104 mmol/L (98-107); POTASSIUM 4.3 mmol/L (3.4-5.1); SGPT/ALT 22 U/L (5-49); TOTAL PROTEIN 6.7 gm/dL (6.0-8.0)
[2024-05-04] MEDS ORDERED: Dicyclomine Hydrochloride 20 MG/10 ML OSYR PO STA (22:45)
[2024-05-04] MEDS ORDERED: Lidocaine Hydrochloride 15 ML UDC PO STA (22:45)
[2024-05-04] MEDS ORDERED: MG-AL HYDROXIDE/SIMETICONE 30 ML UDC PO STA (22:45)
[2024-05-04] MEDS ORDERED: ACID REDUCER10 MG PO (23:41)
== END 2024-05-04 23:54 | disposition home or self-care (01) ==
LOC: ED 19:34
PROVIDERS: Internal Medicine
DX: K21.9 Gastro-esophageal reflux disease without esophagitis (principal); E11.9 Type 2 diabetes mellitus without complications; I48.91 Unspecified atrial fibrillation; Z79.899 Other long term (current) drug therapy; Z90.89 Acquired absence of other organs

== ENCOUNTER → 2024-05-06 | Outpatient (CLI) | payer SELFPAY ==
[~2024-05-06] MED LIST changes: +ACID REDUCER10 MG PO
== END | disposition home or self-care (01) ==
LOC: RESCLI 15:08
PROVIDERS: ATTEND Student in an Organized Health Care Education/Training Program
DX: R10.13 Epigastric pain (principal); Z79.899 Other long term (current) drug therapy; Z98.890 Other specified postprocedural states

== ENCOUNTER 2024-05-10 20:09 | Emergency (ER) | payer SELFPAY ==
[~2024-05-10] VITALS: Ht 175.2 cm; Wt 104.8 kg
[2024-05-10] MEDS ORDERED: Lidocaine Hydrochloride 15 ML UDC PO STA (21:29)
[2024-05-10] MEDS ORDERED: Dicyclomine Hydrochloride 20 MG/10 ML OSYR PO STA (21:29)
[2024-05-10] MEDS ORDERED: MG-AL HYDROXIDE/SIMETICONE 30 ML UDC PO STA (21:29)
[2024-05-10 21:53] LABS: BASO # 0.1 10*3/uL (0.0-0.1); BASO % 0.8 % (0.0-1.0); EOS # 0.1 10*3/uL (0.0-0.4); EOS % 1.1 % (1.0-4.0); HEMATOCRIT 53.8 % (42.0-52.0); MEAN CELL VOLUME 88.5 fl (80.0-94.0); MEAN CORPUSCULAR HGB 30.4 pg (27.0-31.0); MEAN CORPUSCULAR HGB CONC 34.4 g/dl (33.0-37.0); MEAN PLATELET VOLUME 10.4 fl (9.6-12.3); MONO # 0.8 10*3/uL (0.1-1.0); MONO % 10.7 % (3.0-9.0); NEUT # 4.1 10*3/uL (2.3-7.9); NEUT % 55.2 % (47.0-73.0); PLATELET COUNT AUTOMATED 294 10*3/uL (130-400); RED BLOOD COUNT 6.08 10*6/uL (4.50-5.90); RED CELL DISTRI WIDTH 12.2 % (0-14.5); WHITE BLOOD COUNT 7.4 10*3/uL (4.8-10.8)
[2024-05-10 22:21] LABS: ALKALINE PHOSPHATASE 84 U/L (46-116); BUN 13 mg/dl (9-23); CHLORIDE 100 mmol/L (98-107); LIPASE 32 U/L (12-53); POTASSIUM 4.4 mmol/L (3.4-5.1); SGPT/ALT 27 U/L (5-49); TOTAL PROTEIN 7.8 gm/dL (6.0-8.0)
[2024-05-10] MEDS ORDERED: MAGNESIUM CITRATE 296 ML BOT PO ONE (22:35)
== END 2024-05-10 22:47 | disposition home or self-care (01) ==
LOC: ED 20:09
PROVIDERS: Internal Medicine
DX: K59.00 Constipation, unspecified (principal); E11.9 Type 2 diabetes mellitus without complications; Z79.899 Other long term (current) drug therapy; Z90.89 Acquired absence of other organs

== ENCOUNTER 2024-05-16 08:50 | Emergency (ER) | payer SELFPAY ==
[~2024-05-16] VITALS: Ht 175.2 cm; Wt 103.0 kg
[2024-05-16] MEDS ORDERED: MORPHINE Sulfate 2 MG/ML SYR IV ONE (09:05)
[2024-05-16] MEDS ORDERED: Metoclopramide Hydrochloride 10 MG/2 ML VIAL IV ONE (09:05)
[2024-05-16] MEDS ORDERED: SODIUM CHLORIDE 0.9% 1,000 ML IV ONE (09:05)
[2024-05-16] MEDS ORDERED: diphenhydrAMINE hydrochloride 50 MG/ML VIAL IV ONE (09:05)
[2024-05-16 09:34] LABS: BASO % 0.6 % (0.0-1.0); EOS # 0.1 10*3/uL (0.0-0.4); EOS % 1.3 % (1.0-4.0); HEMATOCRIT 47.1 % (42.0-52.0); MEAN CORPUSCULAR HGB 30.1 pg (27.0-31.0); MEAN CORPUSCULAR HGB CONC 34.2 g/dl (33.0-37.0); MEAN PLATELET VOLUME 10.9 fl (9.6-12.3); MONO # 0.7 10*3/uL (0.1-1.0); MONO % 9.7 % (3.0-9.0); NEUT # 4.4 10*3/uL (2.3-7.9); PLATELET COUNT AUTOMATED 258 10*3/uL (130-400); RED BLOOD COUNT 5.35 10*6/uL (4.50-5.90); RED CELL DISTRI WIDTH 12.1 % (0-14.5); WHITE BLOOD COUNT 6.9 10*3/uL (4.8-10.8)
[2024-05-16 09:49] LABS: BUN 11 mg/dl (9-23); CHLORIDE 104 mmol/L (98-107); LIPASE 32 U/L (12-53); POTASSIUM 4.2 mmol/L (3.4-5.1)
== END 2024-05-16 10:24 | disposition home or self-care (01) ==
LOC: ED 08:50
PROVIDERS: Emergency Medicine
DX: R10.84 Generalized abdominal pain (principal); R11.2 Nausea with vomiting, unspecified; E11.9 Type 2 diabetes mellitus without complications; I10 Essential (primary) hypertension; E78.5 Hyperlipidemia, unspecified; Z79.899 Other long term (current) drug therapy; Z79.84 Long term (current) use of oral hypoglycemic drugs

== ENCOUNTER 2024-06-02 12:06 | Emergency (ER) | payer SELFPAY ==
[~2024-06-02] VITALS: Ht 175.3 cm; Wt 104.3 kg
[2024-06-02] MEDS ORDERED: Ondansetron Hydrochloride 4 MG/2 ML VIAL IV ONE (12:25)
[2024-06-02] MEDS ORDERED: MORPHINE Sulfate 2 MG/ML SYR IV ONE (12:25)
[2024-06-02] MEDS ORDERED: SODIUM CHLORIDE 0.9% 1,000 ML IV ONE (12:25)
[2024-06-02 12:39] LABS: BASO % 0.6 % (0.0-1.0); EOS # 0.1 10*3/uL (0.0-0.4); EOS % 0.8 % (1.0-4.0); HEMATOCRIT 49.5 % (42.0-52.0); MEAN CELL VOLUME 87.6 fl (80.0-94.0); MEAN CORPUSCULAR HGB 30.1 pg (27.0-31.0); MEAN CORPUSCULAR HGB CONC 34.3 g/dl (33.0-37.0); MEAN PLATELET VOLUME 10.6 fl (9.6-12.3); MONO # 0.6 10*3/uL (0.1-1.0); MONO % 8.9 % (3.0-9.0); NEUT # 4.4 10*3/uL (2.3-7.9); NEUT % 61.6 % (47.0-73.0); PLATELET COUNT AUTOMATED 293 10*3/uL (130-400); RED BLOOD COUNT 5.65 10*6/uL (4.50-5.90); RED CELL DISTRI WIDTH 12.3 % (0-14.5); WHITE BLOOD COUNT 7.1 10*3/uL (4.8-10.8)
[2024-06-02 12:59] LABS: BUN 13 mg/dl (9-23); CHLORIDE 103 mmol/L (98-107); LIPASE 41 U/L (12-53)
[2024-06-02 13:02] LABS: POTASSIUM 4.3 mmol/L (3.4-5.1)
== END 2024-06-02 13:25 | disposition home or self-care (01) ==
LOC: ED 12:06
PROVIDERS: Emergency Medicine
DX: R10.84 Generalized abdominal pain (principal); I48.91 Unspecified atrial fibrillation; E11.9 Type 2 diabetes mellitus without complications; I10 Essential (primary) hypertension; E78.5 Hyperlipidemia, unspecified; Z79.899 Other long term (current) drug therapy

== ENCOUNTER 2024-06-07 04:37 | Emergency (ER) | payer SELFPAY ==
[~2024-06-07] VITALS: Ht 175.2 cm; Wt 101.2 kg
[2024-06-07] MEDS ORDERED: Metoclopramide Hydrochloride 10 MG/2 ML VIAL IV ONE (05:10)
[2024-06-07] MEDS ORDERED: Pantoprazole Sodium 40 MG VIAL IV ONE (05:10)
[2024-06-07 05:53] LABS: BUN 12 mg/dl (9-23); CHLORIDE 106 mmol/L (98-107); LIPASE 37 U/L (12-53)
[2024-06-07 06:16] LABS: BASO # 0.1 10*3/uL (0.0-0.1); BASO % 0.8 % (0.0-1.0); EOS # 0.1 10*3/uL (0.0-0.4); EOS % 1.5 % (1.0-4.0); HEMATOCRIT 48.7 % (42.0-52.0); MEAN CELL VOLUME 87.9 fl (80.0-94.0); MEAN CORPUSCULAR HGB 30.3 pg (27.0-31.0); MEAN CORPUSCULAR HGB CONC 34.5 g/dl (33.0-37.0); MEAN PLATELET VOLUME 11.1 fl (9.6-12.3); MONO # 0.6 10*3/uL (0.1-1.0); MONO % 9.9 % (3.0-9.0); NEUT # 3.3 10*3/uL (2.3-7.9); NEUT % 53.8 % (47.0-73.0); PLATELET COUNT AUTOMATED 294 10*3/uL (130-400); RED BLOOD COUNT 5.54 10*6/uL (4.50-5.90); RED CELL DISTRI WIDTH 12.3 % (0-14.5); WHITE BLOOD COUNT 6.1 10*3/uL (4.8-10.8)
[2024-06-07] MEDS ORDERED: Dicyclomine Hydrochloride 20 MG/10 ML OSYR PO ONE (06:30)
[2024-06-07] MEDS ORDERED: MG-AL HYDROXIDE/SIMETICONE 30 ML UDC PO ONE (06:30)
[2024-06-07] MEDS ORDERED: Lidocaine Hydrochloride 15 ML UDC PO ONE (06:30)
[2024-06-07] MEDS ORDERED: PANTOPRAZOLE SO20 MG PO (07:46)
== END 2024-06-07 08:08 | disposition home or self-care (01) ==
LOC: ED 04:37
PROVIDERS: Emergency Medicine
DX: K21.9 Gastro-esophageal reflux disease without esophagitis (principal); R11.10 Vomiting, unspecified; E11.9 Type 2 diabetes mellitus without complications; I10 Essential (primary) hypertension; I48.91 Unspecified atrial fibrillation; Z79.899 Other long term (current) drug therapy; E66.9 Obesity, unspecified; Z68.30 Body mass index [BMI] 30.0-30.9, adult; Z86.718 Personal history of other venous thrombosis and embolism; Z85.47 Personal history of malignant neoplasm of testis

== ENCOUNTER 2024-06-17 00:55 | Emergency (ER) | payer SELFPAY ==
[~2024-06-17] VITALS: Ht 175.2 cm; Wt 99.8 kg
[~2024-06-17 00:55] MED LIST changes: +PANTOPRAZOLE SO20 MG PO
[2024-06-17] MEDS ORDERED: Pantoprazole Sodium 40 MG VIAL IV ONE (01:55)
[2024-06-17] MEDS ORDERED: SODIUM CHLORIDE 0.9% 1,000 ML IV ONE (01:55)
[2024-06-17] MEDS ORDERED: Metoclopramide Hydrochloride 10 MG/2 ML VIAL IV ONE (01:55)
[2024-06-17 02:15] LABS: BASO % 0.5 % (0.0-1.0); EOS # 0.1 10*3/uL (0.0-0.4); EOS % 0.6 % (1.0-4.0); HEMATOCRIT 49.2 % (42.0-52.0); MEAN CELL VOLUME 87.1 fl (80.0-94.0); MEAN CORPUSCULAR HGB 30.4 pg (27.0-31.0); MEAN PLATELET VOLUME 10.8 fl (9.6-12.3); MONO # 0.8 10*3/uL (0.1-1.0); MONO % 8.7 % (3.0-9.0); NEUT % 70.3 % (47.0-73.0); PLATELET COUNT AUTOMATED 284 10*3/uL (130-400); RED BLOOD COUNT 5.65 10*6/uL (4.50-5.90); RED CELL DISTRI WIDTH 12.3 % (0-14.5); WHITE BLOOD COUNT 8.6 10*3/uL (4.8-10.8)
[2024-06-17 02:37] LABS: ALKALINE PHOSPHATASE 76 U/L (46-116); BUN 12 mg/dl (9-23); CHLORIDE 104 mmol/L (98-107); POTASSIUM 3.6 mmol/L (3.4-5.1); SGPT/ALT 51 U/L (5-49); TOTAL PROTEIN 7.8 gm/dL (6.0-8.0)
== END 2024-06-17 05:42 | disposition home or self-care (01) ==
LOC: ED 00:55
PROVIDERS: Emergency Medicine
DX: K21.9 Gastro-esophageal reflux disease without esophagitis (principal); K44.9 Diaphragmatic hernia without obstruction or gangrene; I10 Essential (primary) hypertension; E11.9 Type 2 diabetes mellitus without complications; I48.91 Unspecified atrial fibrillation; Z79.899 Other long term (current) drug therapy; Z98.890 Other specified postprocedural states